=== PATIENT | female | born 1975 | race Caucasian/White ===

== ENCOUNTER 2017-06-17 08:46 | Emergency (ER) | payer MEDICAID ==
[~2017-06-17] VITALS: Ht 154.9 cm; Wt 72.6 kg
[2017-06-17 09:05] VITALS: Ht 154.9 cm; Wt 72.6 kg
[2017-06-17 10:57] VITALS: BP 118/68
== END 2017-06-17 10:57 | disposition home or self-care (01) ==
LOC: ED 08:46
DX: S39.012A Strain of muscle, fascia and tendon of lower back, initial encounter (principal); R10.9 Unspecified abdominal pain; W06.XXXA Fall from bed, initial encounter; Y93.89 Activity, other specified; Y92.89 Other specified places as the place of occurrence of the external cause; Y99.8 Other external cause status
CPT/HCPCS: J1885; Q0162

== ENCOUNTER 2017-09-09 15:37 | Emergency (ER) | payer MEDICAID ==
[~2017-09-09] VITALS: Ht 154.9 cm; Wt 73.5 kg
[2017-09-09 15:50] VITALS: Ht 154.9 cm; Wt 73.5 kg
[2017-09-09 16:40] LABS: microscopic required? NO
[2017-09-09 16:51] LABS: UA SPECIFIC GRAVITY <=1.005 (1.005-1.035); urine erythrocyte NEGATIVE (NEGATIVE)
[2017-09-09 19:12] VITALS: BP 108/71
== END 2017-09-09 19:12 | disposition home or self-care (01) ==
LOC: ED 15:37
PROVIDERS: Emergency Medicine
DX: R10.30 Lower abdominal pain, unspecified (principal); R35.0 Frequency of micturition; R30.0 Dysuria; R11.10 Vomiting, unspecified
CPT/HCPCS: 87491; 87591; J0696; Q0162

== ENCOUNTER 2017-11-10 00:21 | Emergency (ER) | payer MEDICAID ==
[~2017-11-10] VITALS: Ht 154.9 cm; Wt 74.8 kg
[2017-11-10 00:39] VITALS: Ht 154.9 cm; Wt 74.8 kg
[2017-11-10 01:30] LABS: CALCIUM 8.7 mg/dL (8.5-10.1); CARBON DIOXIDE 28.4 mmol/L (21-32); CHLORIDE SERUM 104 mmol/L (98-107); CREATININE SERUM 0.9 mg/dL (0.6-1.0); GFR1 > 60 mL/min; GLUCOSE SERUM 108 mg/dL (74-106); POTASSIUM SERUM 3.7 mmol/L (3.5-5.1); SODIUM SERUM 138 mmol/L (136-145)
[2017-11-10 02:01] LABS: BASOPHIL % 0.3 % (0-2); PLATELET COUNT 255 x10^3mcL (130-400); RED CELL DISTRIBUTION WIDTH 13.6 % (11.5-14.5)
[2017-11-10 02:21] VITALS: BP 125/67
== END 2017-11-10 02:21 | disposition home or self-care (01) ==
LOC: ED 00:21
PROVIDERS: Emergency Medicine
DX: N12 Tubulo-interstitial nephritis, not specified as acute or chronic (principal)
CPT/HCPCS: J0696; J1885; J2405; J7030

== ENCOUNTER 2017-12-01 07:52 | Emergency (ER) | payer MEDICAID ==
[~2017-12-01] VITALS: Ht 157.5 cm; Wt 73.9 kg
[2017-12-01 07:53] VITALS: Ht 157.5 cm; Wt 73.9 kg
[2017-12-01 10:01] VITALS: BP 124/82
== END 2017-12-01 10:01 | disposition home or self-care (01) ==
LOC: ED 07:52
DX: N39.0 Urinary tract infection, site not specified (principal)
CPT/HCPCS: J0696; Q0162

== ENCOUNTER 2018-03-27 00:29 | Inpatient (IN) | payer MEDICAID ==
[~2018-03-27] VITALS: Ht 154.9 cm; Wt 77.1 kg
[2018-03-27 00:36] VITALS: Ht 154.9 cm; Wt 77.1 kg
[2018-03-27 03:15] LABS: microscopic required? YES; urine erythrocyte TRACE (NEGATIVE)
[2018-03-27 03:16] LABS: BASOPHIL % 0.4 % (0-2); PLATELET COUNT 220 x10^3mcL (130-400); RED CELL DISTRIBUTION WIDTH 13.3 % (11.5-14.5)
[2018-03-27 03:21] LABS: CALCIUM 8.7 mg/dL (8.5-10.1); CARBON DIOXIDE 28.9 mmol/L (21-32); CHLORIDE SERUM 102 mmol/L (98-107); CREATININE SERUM 0.9 mg/dL (0.6-1.0); GFR1 > 60 mL/min; GLUCOSE SERUM 127 mg/dL (74-106); POTASSIUM SERUM 3.9 mmol/L (3.5-5.1); SODIUM SERUM 138 mmol/L (136-145)
[2018-03-27 03:25] LABS: ALBUMIN 3.7 g/dL (3.4-5.0); ALKALINE PHOSPHATASE 96 U/L (46-116); ALT/SGPT 37 U/L (14-59); AST/SGOT 33 U/L (15-37); BILIRUBIN TOTAL 0.33 mg/dL (0.20-1.00); TOTAL PROTEIN, SERUM 7.8 g/dL (6.4-8.2)
[2018-03-27 06:55] VITALS: BP 97/61
[2018-03-27 07:45] VITALS: BP 92/51
[2018-03-27 07:53] LABS: AMPHETAMINE QUAL UR NONE DETECTED (See below)
[2018-03-27 08:20] LABS: CHOLESTEROL/HDL RATIO 5.1; MAGNESIUM 2.1 mg/dL (1.8-2.4)
[2018-03-27 08:28] LABS: FREE T4 0.73 ng/dL (0.76-1.46); FREE THYROXINE INDEX 2.3 ug/dL (1.4-4.5); T4(THYROXINE) 7.7 ug/dL (4.7-13.3)
[2018-03-27 08:29] LABS: T3 TOTAL 0.99 ng/mL
[2018-03-27 09:00] VITALS: BP 93/60
[2018-03-27 17:15] VITALS: BP 91/53
[2018-03-27 20:34] VITALS: BP 97/61
[2018-03-28 05:54] VITALS: BP 105/63
[2018-03-28 07:05] LABS: BASOPHIL % 0.3 % (0-2); PLATELET COUNT 184 x10^3mcL (130-400); RED CELL DISTRIBUTION WIDTH 13.8 % (11.5-14.5)
[2018-03-28 07:24] LABS: CARBON DIOXIDE 26.8 mmol/L (21-32); CHLORIDE SERUM 104 mmol/L (98-107); CREATININE SERUM 0.6 mg/dL (0.6-1.0); GFR1 > 60 mL/min; GLUCOSE SERUM 112 mg/dL (74-106); POTASSIUM SERUM 3.3 mmol/L (3.5-5.1); SODIUM SERUM 138 mmol/L (136-145)
[2018-03-28 10:11] VITALS: BP 97/58
[2018-03-28 16:40] VITALS: BP 106/64
[2018-03-28 20:39] VITALS: BP 98/66
[2018-03-29 05:50] VITALS: BP 102/67
[2018-03-29 06:10] LABS: BASOPHIL % 0.3 % (0-2); PLATELET COUNT 208 x10^3mcL (130-400); RED CELL DISTRIBUTION WIDTH 13.6 % (11.5-14.5)
[2018-03-29 06:13] LABS: CALCIUM 8.5 mg/dL (8.5-10.1); CARBON DIOXIDE 27.4 mmol/L (21-32); CHLORIDE SERUM 106 mmol/L (98-107); CREATININE SERUM 0.7 mg/dL (0.6-1.0); GFR1 > 60 mL/min; GLUCOSE SERUM 101 mg/dL (74-106); POTASSIUM SERUM 4.2 mmol/L (3.5-5.1); SODIUM SERUM 140 mmol/L (136-145)
[2018-03-29 11:54] VITALS: BP 121/80
[2018-03-29 16:13] VITALS: BP 118/63
[2018-03-30 05:35] VITALS: BP 98/59
[2018-03-30 06:23] LABS: BASOPHIL % 0.4 % (0-2); PLATELET COUNT 241 x10^3mcL (130-400); RED CELL DISTRIBUTION WIDTH 13.5 % (11.5-14.5)
[2018-03-30 06:52] LABS: CALCIUM 8.7 mg/dL (8.5-10.1); CARBON DIOXIDE 27.6 mmol/L (21-32); CHLORIDE SERUM 103 mmol/L (98-107); CREATININE SERUM 0.7 mg/dL (0.6-1.0); GFR1 > 60 mL/min; GLUCOSE SERUM 100 mg/dL (74-106); POTASSIUM SERUM 4.2 mmol/L (3.5-5.1); SODIUM SERUM 135 mmol/L (136-145)
[2018-03-30 08:12] VITALS: BP 111/69
[2018-03-30 12:05] VITALS: BP 113/68
[2018-03-30 15:45] VITALS: BP 109/62
[2018-03-30 21:55] VITALS: BP 87/54
[2018-03-31 05:05] VITALS: BP 117/72
[2018-03-31 08:43] VITALS: BP 94/61
[2018-03-31] MEDS ORDERED: LEVOFLOXACIN750 M1 PO (15:32)
[2018-03-31 15:57] VITALS: BP 94/61
== END 2018-03-31 16:39 | disposition home or self-care (01) | DRG 720 ==
LOC: ED 00:29 → MU 05:09
PROVIDERS: Emergency Medicine; Family Medicine; ADMIT Internal Medicine
DX: A41.9 Sepsis, unspecified organism (principal); E87.1 Hypo-osmolality and hyponatremia; N10 Acute pyelonephritis; N39.0 Urinary tract infection, site not specified; E87.6 Hypokalemia; E78.5 Hyperlipidemia, unspecified; D64.9 Anemia, unspecified; R73.03 Prediabetes
CPT/HCPCS: 83880; 84439; J0696; J1885; J2405; J7030; Q0092

== ENCOUNTER 2018-07-15 19:57 | Emergency (ER) | payer MEDICAID ==
[~2018-07-15] VITALS: Ht 154.9 cm; Wt 75.3 kg
[~2018-07-15 19:57] MED LIST: LEVOFLOXACIN750 M1 PO
[2018-07-15 20:01] VITALS: Ht 154.9 cm; Wt 75.3 kg
[2018-07-15 21:17] LABS: UA SPECIFIC GRAVITY <=1.005 (1.005-1.035); microscopic required? YES; urine erythrocyte TRACE (NEGATIVE)
[2018-07-15 21:41] LABS: BASOPHIL % 0.4 % (0-2); PLATELET COUNT 232 x10^3mcL (130-400); RED CELL DISTRIBUTION WIDTH 13.5 % (11.5-14.5)
[2018-07-15 21:43] LABS: CARBON DIOXIDE 27.2 mmol/L (21-32); CHLORIDE SERUM 107 mmol/L (98-107); CREATININE SERUM 0.8 mg/dL (0.6-1.0); GFR1 > 60 mL/min; GLUCOSE SERUM 108 mg/dL (74-106); POTASSIUM SERUM 3.6 mmol/L (3.5-5.1); SODIUM SERUM 142 mmol/L (136-145)
[2018-07-15 21:48] LABS: ALBUMIN 3.4 g/dL (3.4-5.0); ALKALINE PHOSPHATASE 80 U/L (46-116); ALT/SGPT 27 U/L (14-59); AST/SGOT 16 U/L (15-37); BILIRUBIN TOTAL 0.2 mg/dL (0.20-1.00); TOTAL PROTEIN, SERUM 6.8 g/dL (6.4-8.2)
[2018-07-16 00:28] VITALS: BP 100/67
== END 2018-07-16 00:28 | disposition home or self-care (01) ==
LOC: ED 19:57
PROVIDERS: Emergency Medicine
DX: N13.30 Unspecified hydronephrosis (principal); Z98.890 Other specified postprocedural states
CPT/HCPCS: J1885; J2405; J7030; Q0092

== ENCOUNTER 2019-01-07 21:05 | Emergency (ER) | payer MEDICAID ==
[~2019-01-07] VITALS: Ht 154.9 cm; Wt 74.8 kg
[2019-01-07 21:24] VITALS: Ht 154.9 cm; Wt 74.8 kg
[2019-01-07 22:43] LABS: BASOPHIL % 0.5 % (0-2); PLATELET COUNT 262 x10^3mcL (130-400); RED CELL DISTRIBUTION WIDTH 12.5 % (11.5-14.5)
[2019-01-07 22:45] LABS: CALCIUM 9.1 mg/dL (8.5-10.1); CARBON DIOXIDE 29.9 mmol/L (21-32); CHLORIDE SERUM 104 mmol/L (98-107); CREATININE SERUM 0.9 mg/dL (0.6-1.0); GFR1 > 60 mL/min; GLUCOSE SERUM 102 mg/dL (74-106); SODIUM SERUM 140 mmol/L (136-145)
[2019-01-07 22:52] LABS: ALBUMIN 3.8 g/dL (3.4-5.0); ALKALINE PHOSPHATASE 78 U/L (46-116); ALT/SGPT 37 U/L (14-59); AST/SGOT 15 U/L (15-37); BILIRUBIN TOTAL 0.14 mg/dL (0.20-1.00); LIPASE 260 IU/L (73-393); TOTAL PROTEIN, SERUM 7.6 g/dL (6.4-8.2)
[2019-01-08 00:01] VITALS: BP 101/61
== END 2019-01-08 00:01 | disposition home or self-care (01) ==
LOC: ED 21:05
PROVIDERS: Emergency Medicine
DX: K59.00 Constipation, unspecified (principal); Z98.890 Other specified postprocedural states
CPT/HCPCS: J1885; J2405; J7030

== ENCOUNTER 2019-06-04 08:30 | Emergency (ER) | payer MEDICAID ==
[~2019-06-04] VITALS: Ht 152.4 cm; Wt 69.9 kg
[2019-06-04 08:43] VITALS: Ht 152.4 cm; Wt 69.9 kg
[2019-06-04 12:20] VITALS: BP 119/81
== END 2019-06-04 11:20 | disposition home or self-care (01) ==
LOC: ED 08:30
DX: M62.838 Other muscle spasm (principal); M25.512 Pain in left shoulder; M62.830 Muscle spasm of back; Z98.890 Other specified postprocedural states; Z87.442 Personal history of urinary calculi
CPT/HCPCS: J1885

== ENCOUNTER 2019-07-21 02:21 | Emergency (ER) | payer MEDICAID, SELFPAY ==
[~2019-07-21] VITALS: Ht 154.9 cm; Wt 69.9 kg
[2019-07-21 02:23] VITALS: Ht 154.9 cm; Wt 69.9 kg
[2019-07-21 04:30] LABS: BASOPHIL % 0.2 % (0-2); PLATELET COUNT 196 x10^3mcL (130-400); RED CELL DISTRIBUTION WIDTH 13.5 % (11.5-14.5)
[2019-07-21 04:36] LABS: CALCIUM 8.7 mg/dL (8.5-10.1); CARBON DIOXIDE 27.4 mmol/L (21-32); CHLORIDE SERUM 101 mmol/L (98-107); CREATININE SERUM 0.6 mg/dL (0.6-1.0); GFR1 > 60 mL/min; GLUCOSE SERUM 116 mg/dL (74-106); POTASSIUM SERUM 3.6 mmol/L (3.5-5.1); SODIUM SERUM 137 mmol/L (136-145)
[2019-07-21 04:55] LABS: UA SPECIFIC GRAVITY <=1.005 (1.005-1.035); microscopic required? YES; urine erythrocyte TRACE (NEGATIVE)
[2019-07-21 05:16] VITALS: BP 107/73
== END 2019-07-21 05:16 | disposition home or self-care (01) ==
LOC: ED 02:21
PROVIDERS: Emergency Medicine
DX: N12 Tubulo-interstitial nephritis, not specified as acute or chronic (principal); Z98.890 Other specified postprocedural states; Z87.442 Personal history of urinary calculi
CPT/HCPCS: 36415; Q0092